=== PATIENT | male | born 1955 | race Caucasian/White ===

== ENCOUNTER 2020-06-04 13:43 | Outpatient (REF) | payer BC, SELFPAY ==
[2020-06-04 19:00] LABS: HCT 49.2 % (40.0-50.0); HGB 16.3 g/dL (13.5-17.5); MCH 31.9 pg (27.0-33.0); MCHC 33.1 % (32.0-36.0); MCV 96.3 fL (80-95); MPV 12.8 fL (8.0-11.0); Platelet Count 289 10^3/uL (130-400); RBC 5.11 10^6/uL (4.36-5.78); RDW 12.7 % (11.8-14.1); RDW-SD 45.3 fL; WBC 7.55 10^3/uL (4.4-10.8)
[2020-06-04 19:21] LABS: ALT 28 U/L (16-63); AST 15 U/L (15-37); Albumin 4.6 g/dL (3.4-5.0); Alkaline Phosphatase 109 U/L (46-116); Anion Gap 7.9 mmol/L (3-11); BUN 13 mg/dL (7-18); Bilirubin, Total 1.2 mg/dL (0.2-1.0); CO2 28.1 mmol/L (21.0-32.0); CREATININE 1.03 mg/dL (0.70-1.30); Calcium 9.7 mg/dL (8.5-10.1); Chloride 103 mmol/L (98-107); Glucose 102 mg/dL (74-106); Sodium 139 mmol/L (136-145); Total Protein 8.3 g/dL (6.4-8.2)
[2020-06-07 09:59] LABS: PSA, Screening 3.8 ng/mL (0.0-4.5)
== END 2020-06-04 14:03 ==
LOC: NCHCN 13:43
PROVIDERS: PCP Internal Medicine; Visit Provider Internal Medicine
DX: R10.11 Right upper quadrant pain (principal); R63.4 Abnormal weight loss
CPT/HCPCS: 80053; 84153; 85027; 84443

== ENCOUNTER 2021-03-25 16:43 | Outpatient (REF) | payer MEDICARE, BC, SELFPAY | END 2021-03-25 16:44 | disposition home or self-care (01) | LOC: NCHCN 16:43 | PROVIDERS: PCP Internal Medicine; Visit Provider Internal Medicine | DX: N39.0 Urinary tract infection, site not specified (principal); N40.0 Benign prostatic hyperplasia without lower urinary tract symptoms | CPT/HCPCS: 87086 ==

== ENCOUNTER 2021-07-20 16:58 | Outpatient (REF) | payer MEDICARE, BC, SELFPAY ==
[2021-07-20 20:39] LABS: HCT 45.4 % (40.0-50.0); MCH 31.4 pg (27.0-33.0); MPV 12.7 fL (8.0-11.0); Platelet Count 256 10^3/uL (130-400); RBC 4.78 10^6/uL (4.36-5.78); RDW 12.7 % (11.8-14.1); RDW-SD 44.9 fL; WBC 8.03 10^3/uL (4.4-10.8)
[2021-07-20 20:52] LABS: Anion Gap 9.1 mmol/L (3-11); BUN 14 mg/dL (7-18); CO2 28.9 mmol/L (21.0-32.0); CREATININE 1.1 mg/dL (0.70-1.30); Calcium 9.3 mg/dL (8.5-10.1); Chloride 102 mmol/L (98-107); Glucose 92 mg/dL (74-106); Potassium 4.2 mmol/L (3.5-5.1); Sodium 140 mmol/L (136-145)
== END 2021-07-20 16:59 | disposition home or self-care (01) ==
LOC: NCHCN 16:58
PROVIDERS: PCP Internal Medicine; Visit Provider Internal Medicine
DX: Z01.818 Encounter for other preprocedural examination (principal)
CPT/HCPCS: 80048; 85027

== ENCOUNTER 2024-06-23 18:37 | Outpatient (REF) | payer MEDICARE, BC, SELFPAY ==
[2024-06-23 19:55] LABS: Calculated LDL 154 mg/dL (<100); Cholesterol 237 mg/dL (<200); HDL Cholesterol 61 mg/dL (40-60); Triglyceride 112 mg/dL (<150)
[2024-06-24 21:32] LABS: HIV-1/2 Ag & Ab Screen Negative (Negative)
[2024-06-24 21:35] LABS: Hepatitis C Ab w Rflx HCV PCR Negative (Negative)
== END 2024-06-23 18:38 | disposition home or self-care (01) ==
LOC: NCHCN 18:37
PROVIDERS: PCP Internal Medicine; Visit Provider Internal Medicine
DX: Z00.00 Encounter for general adult medical examination without abnormal findings (principal)
CPT/HCPCS: 80061; 82306; 86803; 87389